=== PATIENT | female | born 1980 | race Two or more races ===

== ENCOUNTER 2018-01-12 19:04 | Emergency (ER) | payer MEDICAID ==
[~2018-01-12] VITALS: Ht 160 cm; Wt 68.0 kg
[2018-01-12] MEDS ORDERED: NKM (19:23)
[2018-01-12 19:30] VITALS: BP 138/85
[2018-01-12] MEDS ORDERED: Meclizine 25mg tab ORAL ONE (20:15)
[2018-01-12 20:34] LABS: APPEARANCE,URINE CLEAR; BILIRUBIN, URINE NEGATIVE (NEGATIVE); COLOR,URINE PALE YELLOW; GLUCOSE, URINE (UA) NEGATIVE (NEGATIVE); KETONES,URINE NEGATIVE (NEGATIVE); LEUKOCYTE ESTERASE ,URINE 2+ (NEGATIVE); NITRITE,URINE NEGATIVE (NEGATIVE); PH,URINE 5 (4.5-8.0); PROTEIN,URINE NEGATIVE (NEGATIVE); UROBILINOGEN,URINE NORMAL MG/DL (0.0-1.0)
[2018-01-12] MEDS ORDERED: KEFLEX500 MG ORAL (20:47)
[2018-01-12] MEDS ORDERED: MECLIZINE HCL25 MG ORAL (20:47)
[2018-01-12 21:00] VITALS: BP 138/85
--- NOTE | 2018-01-12 23:31 | Emergency Room Report ---
History of Present Illness General Chief Complaint: Vomiting Source: Patient Present Illness HPI Patient is a 37-year-old female presented after increased vertigo sensation as well as vomiting. Patient reports having increased spinning sensation worse with head movement. She reports having increased symptoms with the left side of her head down. She denies any fever. She reported having some headache. She denied feeling lightheaded Allergies: Coded Allergies: No Known Allergies (Unverified , 01/12/18) Patient History Last Menstrual Period: Nov Reviewed Nursing Documentation: PMH: Agreed, PSxH: Agreed Nursing Documentation-PMH Past Medical History: No Stated History Review of Systems All Other Systems: negative except mentioned in HPI Physical Exam Vital Signs Date Time Temp Pulse Resp B/P (MAP) Pulse Ox O2 Delivery O2 Flow Rate FiO2 01/12/18 19:18 98.4 90 18 138/85 97 Room Air 98.4 General Appearance: well appearing, no apparent distress, alert, GCS 15 Head: normocephalic, atraumatic ENT: hearing grossly normal, normal voice Neck: full range of motion, supple Respiratory: no respiratory distress, speaking full sentences Gastrointestinal: normal inspection, non tender, soft Musculoskeletal: no calf tenderness Neurologic: normal inspection, alert, oriented x3, normal gait, other - positve Hallpike with left side down Psychiatric: mood/affect normal Skin: no rash Medical Decision Making Diagnostic Impression: Primary Impression: UTI (urinary tract infection) Additional Impression: Vertigo ER Course Patient presented for dizziness. Differential diagnosis included was not limited to CVA, vertebrobasilar insufficiency, myocardial infarction, benign positional vertigo, labyrinthitis, aspirin overdose among others. The patient has exam consistent with peripheral vertigo likely do to benign positional vertigo. Patient was given oral meclizine. Patient had improvement in symptoms. The Mariel maneuver was performed. The patient improvement in her symptoms. The patient is advised to follow up with primary care doctor in 1- 2 days. Patient is advised to return if any worsening condition or if any changes in status that are concerning. This report is dictated with [employer] heat and frost insulator software which may occasionally lead to discrepancies related to use of this software. Last Vital Signs Date Time Temp Pulse Resp B/P (MAP) Pulse Ox O2 Delivery O2 Flow Rate FiO2 01/12/18 21:00 98.4 18 138/85 97 Room Air 209.1 01/12/18 19:18 90 Status: improved Disposition: HOME, SELF-CARE Condition: Stable Scripts Cephalexin* (KEFLEX*) 500 Mg Capsule 500 MG ORAL Q6H, #28 CAP 0 Refills Prov: Maykel Roa 01/12/18 Meclizine Hcl* (MECLIZINE*) 25 Mg Tablet 25 MG ORAL THREE TIMES A DAY for for dizziness, #20 TAB Prov: Maykel Roa 01/12/18 Referrals: NON PHYSICIAN (PCP) Patient Instructions: Nausea and Vomiting, Adult, Benign Positional Vertigo Maykel Roa Jan 12, 2018 23:31
== END 2018-01-12 21:00 | disposition home or self-care (01) ==
LOC: EMR 21:00
DX: N39.0 Urinary tract infection, site not specified (principal); R42 Dizziness and giddiness
CPT/HCPCS: 81003; 81025; 87086; 99284